=== PATIENT | male | born 1970 | race Caucasian/White ===

== ENCOUNTER 2017-10-02 10:21 | Emergency (ER) | payer BC ==
[~2017-10-02] VITALS: Ht 182.9 cm; Wt 122.7 kg
[~2017-10-02 10:21] MED LIST: LEVAQUIN 750MG750 MG PO
[2017-10-02 10:33] VITALS: PULSE 93; TEMP 98.2
[2017-10-02 11:05] LABS: COLLECTION METHOD CLEAN CATCH
[2017-10-02 11:15] LABS: PH 6 (5-8); SQUAMOUS EPITHELIAL None Seen /hpf; URINE APPEARANCE Clear; URINE BACTERIA None Seen /hpf; URINE BILIRUBIN Negative (NEGATIVE); URINE BLOOD 2+ (NEGATIVE); URINE COLOR Straw; URINE GLUCOSE 3+ (NEGATIVE); URINE KETONE Negative (NEGATIVE); URINE LEUKOCYTE ESTERASE Negative (NEGATIVE); URINE NITRATE Negative (NEGATIVE); URINE PROTEIN(semi-quant) Negative (NEGATIVE); URINE UROBILINOGEN Negative (NEGATIVE)
[2017-10-02 11:16] LABS: BASO % 0.3 % (0.0-2.0); EOS % 0.2 % (0-4.0); GRAN # 9.8 (1.4-6.5); GRAN % 87.6 % (42.2-75.2); HEMATOCRIT 42.9 % (42.0-52.0); HEMOGLOBIN 14.4 g/dl (13.5-18.0); LYMPH # 0.8 (1.2-3.4); LYMPH % 7.3 % (20.0-51.0); MEAN CELL VOLUME 80 fl (80.0-100.0); MEAN CORPUSCULAR HEMOGLOBIN 27 pg (27.0-31.0); MEAN CORPUSCULAR HGB CONC 34 g/dl (33.0-37.0); MONO # 0.5 (0.1-0.6); MONO % 4.2 % (1.7-9.3); PLATELET COUNT 171 K/mm3 (130-400); RED BLOOD COUNT 5.39 M/mm3 (4.20-5.60); REDCELL DISTRIBUTION WIDTH-CV 12.7 % (11.5-14.5)
[2017-10-02 11:21] LABS: ALBUMIN 4.7 gm/dL (3.5-5.0); BILIRUBIN,TOTAL 0.6 mg/dL (0.0-1.0); CALCIUM 9.9 mg/dL (8.4-10.2); CREATININE, serum 1.49 mg/dL (0.66-1.25); POTASSIUM 4.2 mmol/L (3.4-5.0); TOTAL PROTEIN 7.6 gm/dL (6.4-8.2)
[2017-10-02] MEDS ORDERED: ZOFRAN 4MG T4 MG/TAB PO (13:29)
[2017-10-02] MEDS ORDERED: NORCO 325 MG-51 TAB PO (13:29)
[2017-10-02] MEDS ORDERED: FLOMAX 0.40.4 MG/CAP PO (13:29)
[2017-10-02] MEDS ORDERED: HCTZ 25MG TAB25 MG PO (13:48)
[2017-10-02] MEDS ORDERED: GLUCOPHAGE1000 MG PO (13:48)
[2017-10-02] MEDS ORDERED: PRINIVIL40 MG PO (13:48)
[2017-10-02] MEDS ORDERED: LOFIBRA160 MG PO (13:49)
[2017-10-02] MEDS ORDERED: NORVASC 10MG10 MG PO (13:49)
[2017-10-02] MEDS ORDERED: AMARYL4 MG PO (13:50)
[2017-10-02] MEDS ORDERED: LANTUS SOLOS100 U/ML SQ (13:59)
[2017-10-02 14:25] VITALS: BP 138/94
== END 2017-10-02 14:25 | disposition home or self-care (01) ==
LOC: COL.ER 10:21
PROVIDERS: Emergency Medicine
DX: N20.0 Calculus of kidney (principal); E11.65 Type 2 diabetes mellitus with hyperglycemia; I10 Essential (primary) hypertension; E78.5 Hyperlipidemia, unspecified; Z87.19 Personal history of other diseases of the digestive system; Z90.49 Acquired absence of other specified parts of digestive tract; Z79.84 Long term (current) use of oral hypoglycemic drugs
CPT/HCPCS: J2270; J2405; J7030; Q9967